=== PATIENT | female | born 1995 | race Caucasian/White ===

== ENCOUNTER 2017-09-29 21:41 | Emergency (ER) | payer OTHER ==
[2017-09-29 22:04] VITALS: BMI 29.2
--- NOTE | 2017-09-29 22:12 | PDOC ---
History of Present Illness - General Chief Complaint: Allergic Reaction Stated Complaint: RASH ON BODY Time Seen by Provider: 09/29/17 22:12 - History of Present Illness Initial Comments: 09/29/17 22:25 Ms. 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 She reports this has happened other times when she has eaten pork or cro[place]ian food but never to this extent. The patient denies chest pain, shortness of breath, headache and dizziness. Denies fever, chills, nausea, vomit, diarrhea and constipation. Denies dysuria, frequency, urgency and hematuria. Allergies: NKDA Past History - Past Medical History Allergies/Adverse Reactions: Allergies Allergy/AdvReac Type Severity Reaction Status Date / Time No Known Allergies Allergy Verified 09/29/17 23:20 Home Medications: Ambulatory Orders Albuterol Sulfate Inhaler - [Ventolin Hfa Inhaler -] 1 - 2 inh PO Q4H PRN Anemia: No Asthma: Yes Cancer: No Cardiac Disorders: Yes CVA: No COPD: No DVT: No Dementia: No Diabetes: No Dialysis: No GI Disorders: No Disorders: No HTN: No Hypercholesterolemia: No Kidney Stones: No Liver Disease: No Psychiatric Problems: No Seizures: No Thyroid Disease: No Lung CA: No - Surgical History Abdominal Surgery: No Appendectomy: No Cardiac Surgery: Yes (Catherization with stent 2004) Cholecystectomy: Yes (Gall bladder removed 2011) Gastric Stapling: No GI Surgery: No Lung Surgery: No Neurologic Surgery: No - Immunization History Immunization Up to Date: Yes - Suicide/Smoking/Psychosocial Hx Smoking History: Never smoked Have you smoked in the past 12 months: No Information on smoking cessation initiated: No Hx Alcohol Use: No Drug/Substance Use Hx: No Substance Use Type: None Review of Systems - Review of Systems Comments:: 09/29/17 22:29 GENERAL/CONSTITUTIONAL: No fever or chills. No weakness. HEAD, EYES, EARS, NOSE AND THROAT: +Non-specific throat tightness with denial of difficulty breathing. No change in vision. No ear pain or discharge. No sore throat. CARDIOVASCULAR: No chest pain or shortness of breath RESPIRATORY: No cough, wheezing, or hemoptysis. GASTROINTESTINAL: No nausea, vomiting, diarrhea or constipation. GENITOURINARY: No dysuria, frequency, or change in urination. MUSCULOSKELETAL: No joint or muscle swelling or pain. No neck or back pain. SKIN: No rash NEUROLOGIC: No headache, vertigo, loss of consciousness, or change in strength/ sensation. ENDOCRINE: No increased thirst. No abnormal weight change HEMATOLOGIC/LYMPHATIC: No anemia, easy bleeding, or history of blood clots. ALLERGIC/IMMUNOLOGIC: Red rash to arms / back *Physical Exam - Vital Signs Last Vital Signs Temp Pulse Resp BP Pulse Ox 98 F 86 18 126/75 99 09/29/17 21:58 09/29/17 21:58 09/29/17 21:58 09/29/17 21:58 09/29/17 21:58 - Physical Exam Comments: 09/29/17 22:30 GENERAL: Awake, alert, and fully oriented, in no acute distress HEAD: No signs of trauma, normocephalic, atraumatic EYES: PERRLA, EOMI, sclera anicteric, conjunctiva clear ENT: +Oropharynx appears crowded, unknown if this is anatomical or pathologic. Auricles normal inspection, hearing grossly normal, nares patent, oropharynx clear without exudates. Moist mucosa NECK: Normal ROM, supple, no lymphadenopathy, JVD, or masses LUNGS: No distress, speaks full sentences, clear to auscultation bilaterally HEART: Regular rate and rhythm, normal S1 and S2, no murmurs, rubs or gallops, peripheral pulses normal and equal bilaterally. ABDOMEN: Soft, nontender, normoactive bowel sounds. No guarding, no rebound. No masses EXTREMITIES: Normal inspection, Normal range of motion, no edema. No clubbing or cyanosis. NEUROLOGICAL: Cranial nerves II through XII grossly intact. Normal speech, normal gait, no focal sensorimotor deficits SKIN: +Red rash noted to arms, back, chest, face Medical Decision Making - Medical Decision Making 09/30/17 01:11 Ms. Knapp presented with symptoms concerning for acute allergic reaction. After benadryl, pepcid, and solumedrol administration patient has had complete resolution of symptoms and is resting comfortably. Will discharge home with instructions to f/u w/ PCP for outpatient [facility] operator referral. Patient verbalized understanding and agreement with this plan. *DC/Admit/Observation/Transfer Diagnosis at time of Disposition: Allergic reaction Qualifiers: Encounter type: initial encounter Qualified Code(s): T78.40XA - Allergy, unspecified, initial encounter - Discharge Dispostion Disposition: HOME - Referrals Referrals: Ani Mathis [Primary Care Provider] - - Patient Instructions Printed Discharge Instructions: DI for Food Allergy Additional Instructions: Please follow-up with your primary care provider for [facility] operator referral as discussed. Return if any return of throat tightness, fever, chills, or any other concerning symptoms. - Post Discharge Activity
[2017-09-29] MEDS ORDERED: methylPREDNISolone NA SUCC 125 MG/2 ML VIAL IVPUSH ONE (22:24)
[2017-09-29] MEDS ORDERED: FAMOTIDINE IV 20 MG/12 ML VIAL IVPUSH ONE (22:30)
--- NOTE | 2017-09-29 23:11 | PDOC ---
Attending Attestation - Resident Resident Name: Colten Davila - ED Attending Attestation I have performed the following: I have examined & evaluated the patient, The case was reviewed & discussed with the resident, I agree w/resident's findings & plan, Exceptions are as noted - HPI HPI: 09/29/17 23:01 22 F with h/o asthma presents to ER with allergic reaction. Pt states that she had a dinner of pork at home and subsequently developed itchiness to her back and face. She denies SOB, denies tongue or lip swelling. Denies change in voice or hoarseness. Pt took Xyzal immediately afterwards with some relief to the itchiness. Pt reports having multiple prior similar reactions in the past. She has seen an capping machine operator but was not tested for food allergies and does not know what she is allergic to. - Physicial Exam PE: 09/29/17 23:11 "GENERAL: Awake, alert, and fully oriented, in no acute distress HEAD: No signs of trauma EYES: PERRLA, EOMI, sclera anicteric, conjunctiva clear ENT: Uvula and tonsil normal, no tongue swelling, Auricles normal inspection, hearing grossly normal, nares patent, oropharynx clear without exudates. Moist mucosa NECK: Nontender, no stepoffs, Normal ROM, supple, no lymphadenopathy, JVD, or masses LUNGS: Breath sounds equal, clear to auscultation bilaterally. No wheezes, and no crackles HEART: Regular rate and rhythm, normal S1 and S2, no murmurs, rubs or gallops ABDOMEN: Soft, nontender, normoactive bowel sounds. No guarding, no rebound. No masses EXTREMITIES: Normal range of motion, no edema. No clubbing or cyanosis. No cords, erythema, or tenderness NEUROLOGICAL: Cranial nerves II through XII intact. 5/5 strength and sensation in all extremities, Normal speech, normal gait SKIN: Mild excoriations to back and shoulders without any visible hives" - Medical Decision Making 09/29/17 23:12 22 F with mild allergic reaction. Mostly cutaneous involvement with no evidence of airway compromise. - Benadryl, pepcid, steroids - Monitor in ER 09/30/17 01:31 Pt reassessed - now with complete resolution of rash. Denies SOB, denies throat swelling, denies tongue or lip swelling. Pt with clear lungs. Vitals normal, clinically stable for DC. I discussed the physical exam findings, ancillary test results and final diagnoses with the patient. I answered all of the patient's questions. The patient was satisfied with the care received and felt comfortable with the discharge plan and treatment plan. The patient agrees to follow up with the primary care physician or capping machine operator within 24-72 hours.
[2017-09-30 01:34] VITALS: BP 109/67; PULSE 96; TEMP 98
== END 2017-09-30 01:43 | disposition home or self-care (01) ==
LOC: JER 21:41
DX: T78.1XXA Other adverse food reactions, not elsewhere classified, initial encounter (principal)
CPT/HCPCS: 99282-25

== ENCOUNTER 2017-11-25 08:54 | Emergency (ER) | payer OTHER ==
[2017-11-25 09:07] VITALS: BP 116/65; PULSE 122; TEMP 101.1; BMI 29.2
[2017-11-25] MEDS ORDERED: ACETAMINOPHEN 325 MG TABLET (FP) PO ONE (09:09)
--- NOTE | 2017-11-25 09:33 | PDOC ---
History of Present Illness - General Chief Complaint: Respiratory Stated Complaint: FEVER Time Seen by Provider: 11/25/17 09:16 Exam Limitations: No Limitations - History of Present Illness Initial Comments: 11/25/17 09:33 Onset of high fevers, cough, sore throat pain patient came to emergency department for evaluation of acute onset of fevers, body aches, sore throat and ear pain, moist nonproductive cough Timing/Duration: reports: getting worse Severity: reports: mild, moderate Past History - Travel Traveled outside of the country in the last 30 days: No Close contact w/someone who was outside of country & ill: No - Past Medical History Allergies/Adverse Reactions: Allergies Allergy/AdvReac Type Severity Reaction Status Date / Time No Known Allergies Allergy Verified 11/25/17 09:07 Home Medications: Ambulatory Orders Oseltamivir Phosphate [Tamiflu -] 75 mg PO BID #10 capsule 11/25/17 Anemia: No Asthma: Yes Cancer: No Cardiac Disorders: Yes (murmur) CVA: No COPD: No DVT: No Dementia: No Diabetes: No Dialysis: No GI Disorders: No Disorders: No HTN: No Hypercholesterolemia: No Kidney Stones: No Liver Disease: No Psychiatric Problems: No Seizures: No Thyroid Disease: No Lung CA: No - Surgical History Abdominal Surgery: No Appendectomy: No Cardiac Surgery: Yes (Catherization with stent 2004) Cholecystectomy: Yes (Gall bladder removed 2011) Gastric Stapling: No GI Surgery: No Lung Surgery: No Neurologic Surgery: No - Immunization History Immunization Up to Date: Yes - Suicide/Smoking/Psychosocial Hx Smoking History: Never smoked Have you smoked in the past 12 months: No Hx Alcohol Use: No Drug/Substance Use Hx: No Substance Use Type: None Review of Systems - Review of Systems Able to Perform ROS?: Yes Is the patient limited Dutch proficient: Yes Constitutional: Yes: Symptoms Reported, See HPI, Fever, Malaise HEENTM: Yes: Symptoms Reported, See HPI, Nose Congestion, Throat Pain Respiratory: Yes: See HPI, Cough. No: Wheezing Integumentary: Yes: Symptoms Reported All Other Systems: Reviewed and Negative *Physical Exam - Vital Signs Last Vital Signs Temp Pulse Resp BP Pulse Ox 101.1 F H 122 H 20 116/65 97 11/25/17 09:04 11/25/17 09:04 11/25/17 09:04 11/25/17 09:04 11/25/17 09:04 - Physical Exam Comments: 11/25/17 09:34 GENERAL: [The child is awake, alert, and appropriately interactive.] EYES: [The pupils are equal, round, and reactive to light, with clear, conjunctiva.but glassy] NOSE: [The nose with clear drainage EARS: [The ear canals and tympanic membranes are congested but landmarks easily visualed ] THROAT: [The oropharynx is clear with erythema, no exudates. The mucous membranes are moist.] NECK: [The neck is supple with mildly tender adenopathy, no menigemous] CHEST: [The lungs are coarse but clear without crackles, or wheezes.] HEART: [Heart is regular rhythm, with normal S1 and S2, no murmurs.] ABDOMEN: [The abdomen is soft and nontender with normal bowel sounds. There is no organomegaly and no mass. There is no guarding or rebound.] EXTREMITIES: [Extremities are normal.] NEURO: [Behavior is normal for age.cranky but easily,m Tone is normal.] SKIN: [Skin is unremarkable without rash or swelling. There is no bruising, and there are no other signs of injury.] y General Appearance: Yes: Nourished, Appropriately Dressed, Apparent Distress ED Treatment Course - Medications Given in the ED: ED Medications Discontinued Medications Generic Name Dose Route Start Last Admin Trade Name Parthq PRN Reason Stop Dose Admin Acetaminophen 650 mg 11/25/17 09:09 11/25/17 09:09 Tylenol - PO 11/25/17 09:10 650 mg NOW ONE Administration Progress Note - Progress Note Progress Note: Upper respiratory infection, probable influenza. We'll treat with Tamiflu *DC/Admit/Observation/Transfer Diagnosis at time of Disposition: Influenzal acute upper respiratory infection - Discharge Dispostion Disposition: HOME Condition at time of disposition: Stable Admit: No - Referrals Referrals: Ani Mathis [Primary Care Provider] - - Patient Instructions Additional Instructions: Rest, drink lots of fluids: Teas, water, soups, Pedialyte Saltwater gargles Steamy showers/seem to face break up mucus Old-fashioned treatments help! Avoid contact with others until fevers and cough resolved as this is very contagious Lots of handwashing and good hygiene Continue [id number] medications for symptomatic relief Tylenol or Motrin for fever and pain Take all of Tamiflu as directed: 1 tab every 12 hours for 5 days Followup with private physician in one to 2 days as needed or if worsening Return to emergency department for worsened symptoms, fevers, dehydration Influenza takes between 5 and 7 days for resolution To not participate in any activity, work, or school until fevers and cough are gone for at least one day - Post Discharge Activity Forms/Work/School Notes: Back to School, Back to Work
== END 2017-11-25 09:39 | disposition home or self-care (01) ==
LOC: JERFT 08:54
DX: J11.1 Influenza due to unidentified influenza virus with other respiratory manifestations (principal)
CPT/HCPCS: 99281-25